=== PATIENT | female | born 1935 | race Caucasian/White ===

== ENCOUNTER 2019-08-27 19:31 | Emergency (ER) | payer MEDICARE, BC ==
[2019-08-27] MEDS ORDERED: BACIGUENT PACKET ONE (20:12)
--- NOTE | 2019-08-27 20:17 | ERPHSYRPT ---
- History of Present Illness Time Seen by Provider: 08/27/19 19:45 Source: patient Exam Limitations: no limitations Patient Subjective Stated Complaint: pt states, "I was taking some trash outside and fell out the front door". Triage Nursing Assessment: pt alert and oriented x3, cooperative. Pt has laceration to lt elbow area 5.4 cm L x 1.7 cm W x 0.1 cm D, small amt of bleeding. Pt has scratch to rt forearm area with small open area 0.8 cm L x 0.2 cm W x 0.1 cm D, all these due from a fall out the front door. Pt states, "I have poor balance and have been falling alot lately". Physician History: S/P Fall, Pt has laceration to lt elbow area 5.4 cm L x 1.7 cm W x 0.1 cm D, small amt of bleeding. Pt has scratch to rt forearm area with small open area 0.8 cm L x 0.2 cm W x 0.1 cm D, all these due from a fall out the front door. Pt states, "I have poor balance and have been falling alot lately". Occurred: just prior to arrival Reason for Fall: lost balance Injuries/Pain Location: upper extremity ( described above) Loss of Consciousness: no loss of consciousness Quality: burning Severity of Pain-Max: moderate Severity of Pain-Current: moderate Modifying Factors: Improves With: movement Associated Symptoms (Fall): extremity injury, No abdominal pain, No back pain, No confusion, No chest pain, No dizziness, No headache, No lightheadedness, No muscle spasms, No nausea, No neck pain, No ringing in ears, No seizures, No shortness of breath, No slurred speech, No trouble walking, No vomiting Allergies/Adverse Reactions: pregabalin [From Lyrica] Allergy (Severe, Verified 08/27/19 19:59) Swelling of Tongue and Lips Home Medications: Furosemide [Lasix] 10 mg PO DAILY PRN PRN 08/27/19 [History] Insulin Regular, Human [Humulin R] 12 units SQ TID 08/27/19 [History] Levothyroxine Sodium 88 Mcg [Synthroid 88 Mcg] 88 mcg PO DAILY 08/27/19 [ History] Metoprolol Tartrate 50 mg [Lopressor 50 MG] 50 mg PO BID 08/27/19 [History ] NPH, Human Insulin Isophane [Novolin N] 12 units SQ HS 08/27/19 [History] Naproxen Sodium 220 mg [Aleve 220 MG] 440 mg PO QID 08/27/19 [History] Hx Tetanus, Diphtheria Vaccination/Date Given: Yes Hx Influenza Vaccination/Date Given: Yes Hx Pneumococcal Vaccination/Date Given: Yes Immunizations Up to Date: Yes - Review of Systems Constitutional: No Fever, No Chills Eyes: No Symptoms Ears, Nose, & Throat: No Symptoms, Other (pain on the right side of the neck.) Respiratory: No Cough, No Dyspnea Cardiac: No Chest Pain, No Edema, No Syncope Abdominal/Gastrointestinal: No Abdominal Pain, No Nausea, No Vomiting, No Diarrhea Genitourinary Symptoms: No Dysuria Musculoskeletal: Other (Pt has laceration to lt elbow area 5.4 cm L x 1.7 cm W x 0.1 cm D, small amt of bleeding. Pt has scratch to rt forearm area with small open area 0.8 cm L x 0.2 cm W x 0.1 cm), No Back Pain, No Neck Pain Skin: Other (Pt has laceration to lt elbow area 5.4 cm L x 1.7 cm W x 0.1 cm D, small amt of bleeding. Pt has scratch to rt forearm area with small open area 0.8 cm L x 0.2 cm W x 0.1 cm), No Rash Neurological: No Dizziness, No Focal Weakness, No Sensory Changes Psychological: No Symptoms Endocrine: No Symptoms All Other Systems: Reviewed and Negative - Past Medical History Pertinent Past Medical History: Yes Neurological History: No Pertinent History ENT History: Cataracts Cardiac History: Angina, Congestive Heart Failure, High Cholesterol, Hypertension Respiratory History: Bronchitis Endocrine Medical History: Diabetes Type II, Hypothyroidism Musculoskeletal History: Arthritis GI Medical History: Other History: No Pertinent History Psycho-Social History: No Pertinent History Female Reproductive Disorders: No Pertinent History - Past Surgical History Past Surgical History: Yes Neuro Surgical History: No Pertinent History Cardiac: No Pertinent History Respiratory: No Pertinent History Gastrointestinal: Appendectomy, Cholecystectomy Musculoskeletal: No Pertinent History Female Surgical History: Hysterectomy - Social History Smoking Status: Never smoker Exposure to second hand smoke: No Drug Use: none Patient Lives Alone: Yes - Female History Hx Now: No - Nursing Vital Signs Nursing Vital Signs: Initial Vital Signs Temperature 98.3 F 08/27/19 19:43 Pulse Rate 68 08/27/19 19:43 Respiratory Rate 17 08/27/19 19:43 Blood Pressure 159/77 08/27/19 19:43 O2 Sat by Pulse Oximetry 99 08/27/19 19:43 Pain Scale Pain Intensity 3 - [place] Coma Score Best Eye Response ([place]): (4) open spontaneously Best Verbal Response ([place]): (5) oriented Best Motor Response ([place]): (6) obeys commands [place] Total: 15 - Physical Exam General Appearance: no apparent distress, alert Head Injury: no evidence of injury Eye Exam: PERRL/EOMI ENT Exam: airway nml Neck Exam: supple, trachea midline, full range of motion, normal alignment, normal inspection, muscle spasm, stiff neck, No focal neuro deficit, No limited range of motion, No paraspinous muscle tender, No pain on movement of neck, No tenderness, No tender lateral, No mid-line tenderness, No meningismus, No Brudzinski, No subcutaneous emphysema, No thyromegaly Respiratory/Chest Exam: normal breath sounds, No chest tenderness, No respiratory distress Cardiovascular Exam: normal heart sounds, regular rate/rhythm Gastrointestinal Exam: soft, No tenderness, No distention, No guarding, No ecchymosis Back Exam: normal inspection, No vertebral tenderness Extremity Exam: normal inspection, normal range of motion, pelvis stable, other (Pt has laceration to lt elbow area 5.4 cm L x 1.7 cm W x 0.1 cm D, small amt of bleeding. Pt has scratch to rt forearm area with small open area 0.8 cm L x 0.2 cm W x 0.1 cm), No deformities Neurologic Exam: alert, oriented x 3, cooperative, sensation nml, No motor deficits Skin Exam: normal color, warm, dry SpO2 Interpretation: normal SpO2: 99 O2 Delivery: Room Air - Course Nursing assessment & vital signs reviewed: Yes - Progress Progress: unchanged Progress Note: 08/27/19 20:16 the skin tear or does not need any suturing. we will put a dressing on it. There is no bony point tenderness. No x-rays required. No loss of consciousness. CHASSIS MECHANIC exam normal. The CT scan not needed. 08/27/19 20:17 patient is up to date on her tetanus shot. Patient refuses the pain medications. No medication needed Counseled pt/family regarding: diagnosis, need for follow-up - Departure Departure Disposition: Home Clinical Impression: Skin tear Contusion Qualifiers: Encounter type: initial encounter Contusion area: elbow Laterality: left Qualified Code(s): S50.02XA - Contusion of left elbow, initial encounter Cervical sprain Qualifiers: Encounter type: initial encounter Qualified Code(s): S13.9XXA - Sprain of joints and ligaments of unspecified parts of neck, initial encounter Condition: Stable Critical Care Time: No Referrals: PAGE NATH NP [Primary Care Provider] -
[2019-08-27] MEDS ORDERED: BACIGUENT PACKET TP ONE (20:19)
[2019-08-27 21:36] VITALS: BP 122/71; PULSE 86; O2SAT 99
== END 2019-08-27 20:35 | disposition home or self-care (01) ==
LOC: ED 19:31
DX: S51.012A Laceration without foreign body of left elbow, initial encounter (principal); W17.89XA Other fall from one level to another, initial encounter; S50.02XA Contusion of left elbow, initial encounter; Z79.899 Other long term (current) drug therapy; I50.9 Heart failure, unspecified; I10 Essential (primary) hypertension; E78.00 Pure hypercholesterolemia, unspecified; E11.9 Type 2 diabetes mellitus without complications; E03.9 Hypothyroidism, unspecified; M19.90 Unspecified osteoarthritis, unspecified site; S13.0XXA Traumatic rupture of cervical intervertebral disc, initial encounter
CPT/HCPCS: 99283; A9270-GY

== ENCOUNTER 2021-08-12 11:13 | Emergency (ER) | payer BC, MEDICARE ==
--- NOTE | 2021-08-12 11:16 | ERPHSYRPT ---
- History of Present Illness Time Seen by Provider: 08/12/21 11:15 Source: patient Exam Limitations: no limitations Physician History: This is an 85-year-old white female who does not have a local primary care provider per her report. Patient moved here 2-1/2 months ago and had right hip pain and low back pain since then. Recently, in the last few days, patient has noticed frequency of urination and burning with urination. She is concerned she has a urinary tract infection. Patient is a diabetic patient, has hypothyroidism, hypertension, elevated cholesterol, and congestive heart failure. Patient denies chest pain. She denies shortness of breath. Patient d enies fever. She denies nausea vomiting and diarrhea. Patient chronically walks with a cane. Timing/Duration: day(s) (Last few days worsening urinary frequency and dysuria), worse Activites at Onset: none Quality: burning Onset Location: suprapubic Severity of Pain-Max: mild Severity of Pain-Current: mild Prior abdominal problems: none Sexual intercourse history: non-contributory Modifying Factors: Improves With: nothing Associated Symptoms: dysuria, urinary frequency Allergies/Adverse Reactions: pregabalin [From Lyrica] Allergy (Severe, Verified 08/12/21 11:31) Swelling of Tongue and Lips Home Medications: Furosemide [Lasix] 10 mg PO DAILY PRN PRN 08/27/19 [History] Insulin Regular, Human [Humulin R] 12 units SQ TID 08/27/19 [History] Levothyroxine Sodium 88 Mcg [Synthroid 88 Mcg] 88 mcg PO DAILY 08/27/19 [History] Metoprolol Tartrate 50 mg [Lopressor 50 MG] 50 mg PO BID 08/27/19 [History] NPH, Human Insulin Isophane [Novolin N] 12 units SQ HS 08/27/19 [History] Hx Tetanus, Diphtheria Vaccination/Date Given: Yes Hx Influenza Vaccination/Date Given: Yes Hx Pneumococcal Vaccination/Date Given: Yes Travel Risk - International Travel Have you traveled outside of the country in past 3 weeks: No - Coronavirus Screening Are you exhibiting any of the following symptoms?: No Close contact with a COVID-19 positive Pt in past 14-21 Days: No - Review of Systems Constitutional: No Symptoms Eyes: No Symptoms Ears, Nose, & Throat: No Symptoms Respiratory: No Symptoms Cardiac: No Symptoms Abdominal/Gastrointestinal: No Symptoms Genitourinary Symptoms: Dysuria, Frequency Musculoskeletal: No Symptoms Skin: No Symptoms Neurological: No Symptoms Psychological: No Symptoms Endocrine: No Symptoms Hematologic/Lymphatic: No Symptoms Immunological/Allergic: No Symptoms All Other Systems: Reviewed and Negative - Past Medical History Pertinent Past Medical History: Yes Neurological History: No Pertinent History ENT History: Cataracts Cardiac History: Angina, Congestive Heart Failure, High Cholesterol, Hypertension Respiratory History: Bronchitis Endocrine Medical History: Diabetes Type II, Hypothyroidism Musculoskeletal History: Arthritis GI Medical History: Other History: No Pertinent History Psycho-Social History: No Pertinent History Female Reproductive Disorders: No Pertinent History - Past Surgical History Past Surgical History: Yes Neuro Surgical History: No Pertinent History Cardiac: No Pertinent History Respiratory: No Pertinent History Gastrointestinal: Appendectomy, Cholecystectomy Musculoskeletal: No Pertinent History Female Surgical History: Hysterectomy - Social History Smoking Status: Never smoker Exposure to second hand smoke: No Drug Use: none Patient Lives Alone: Yes - Nursing Vital Signs Nursing Vital Signs: Initial Vital Signs Temperature 96.9 F 08/12/21 11:20 Pulse Rate 62 08/12/21 11:20 Respiratory Rate 16 08/12/21 11:20 Blood Pressure 150/63 08/12/21 11:20 O2 Sat by Pulse Oximetry 95 08/12/21 11:20 Pain Scale Pain Intensity 8 - Physical Exam General Appearance: no apparent distress, alert, anxiety Eye Exam: PERRL/EOMI Ears, Nose, Throat Exam: normal ENT inspection, moist mucous membranes Neck Exam: normal inspection, non-tender, supple, full range of motion Respiratory Exam: normal breath sounds, lungs clear, airway intact, No chest tenderness, No respiratory distress Cardiovascular Exam: regular rate/rhythm, normal heart sounds, normal peripheral pulses Gastrointestinal/Abdomen Exam: soft, normal bowel sounds, organomegaly, No tenderness Rectal Exam: not done Back Exam: normal inspection, normal range of motion, No CVA tenderness, No vertebral tenderness Extremity Exam: normal inspection, normal range of motion, pelvis stable Neurologic Exam: alert, oriented x 3, cooperative, 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, normal mood/affect, nml cerebellar function, sensation nml Skin Exam: normal color, warm, dry Lymphatic Exam: No adenopathy O2 Delivery: Room Air - Course Nursing assessment & vital signs reviewed: Yes Ordered Tests: Active Orders 24 hr Category Date Time Status CULTURE,URINE Stat Lab 08/12/21 12:07 Received UA W/RFX UR CULTURE Stat Lab 08/12/21 12:07 Completed Medication Summary Discontinued Medications Generic Name Dose Route Start Last Admin Trade Name Nathan PRN Reason Stop Dose Admin Ceftriaxone Sodium 1,000 mg 08/12/21 12:48 08/12/21 13:15 Ceftriaxone Sodium 1000 Mg Inj Vial IM 08/12/21 12:49 1,000 mg STAT ONE Administration Ceftriaxone Sodium Confirm 08/12/21 13:11 Ceftriaxone Sodium 1000 Mg Inj Vial Administered 08/12/21 13:12 Dose 1,000 mg .ROUTE .STK-MED ONE Levofloxacin 500 mg 08/12/21 12:48 08/12/21 13:15 Levofloxacin 500 Mg Tablet PO 08/12/21 12:49 500 mg STAT ONE Administration Levofloxacin Confirm 08/12/21 13:11 Levofloxacin 500 Mg Tablet Administered 08/12/21 13:12 Dose 500 mg .ROUTE .STK-MED ONE Lidocaine HCl Confirm 08/12/21 13:11 Lidocaine Hcl 1% 20 Ml Mdv 20 Ml Ml Administered 08/12/21 13:12 Dose 1 ml .ROUTE .STK-MED ONE Lab/Rad Data: Laboratory Results 08/12/21 Range/Units 12:07 Urine Color YELLOW (YELLOW) Urine Appearance TURBID (CLEAR) Urine pH 5.0 (5-6) Ur Specific [place] 1.015 (1.005-1.025) Urine Protein 100 (Negative) Urine Ketones NEGATIVE (NEGATIVE) Urine Blood SMALL (0-5) Barry/ul Urine Nitrite NEGATIVE (NEGATIVE) Urine Bilirubin NEGATIVE (NEGATIVE) Urine Urobilinogen NEGATIVE (0-1) mg/dL Ur Leukocyte Esterase MODERATE (NEGATIVE) Urine WBC (Auto) >100 (0-5) /HPF Urine Bacteria (Auto) MODERATE (NEGATIVE) /HPF Urine Culture Reflexed YES (NO) Urine Glucose 150 (NEGATIVE) mg/dL - Progress Progress: unchanged Air Movement: good Blood Culture(s) Obtained: No Antibiotics given: Yes Counseled pt/family regarding: lab results, diagnosis, need for follow-up - Departure Departure Disposition: Home Clinical Impression: Chronic right hip pain, UTI (urinary tract infection) Condition: Stable Critical Care Time: No Referrals: PAGE NATH NP [NON-STAFF PHY W/O PRIVILEGES] [phone] Additional Instructions: Follow-up tomorrow morning, 08/13/2021, at the [facility] orthopedic clinic between 8 and 9 AM. It is a walk-in clinic and you do not need to have appointm ent. Take your antibiotics as prescribed and drink plenty of fluids. Take your other medication as prescribed. Prescriptions: Levofloxacin [Levaquin 500 MG Tablet] 500 mg PO DAILY #7 tablet Phenazopyridine HCl 200 mg [Pyridium 200 mg] 200 mg PO TID #6 tablet
[2021-08-12 11:31] VITALS: BP 150/63; PULSE 62; O2SAT 95
[2021-08-12 12:33] LABS: Appearance TURBID (CLEAR); Bacteria MODERATE /HPF (NEGATIVE); Bilirubin NEGATIVE (NEGATIVE); Blood SMALL Ery/ul (0-5); Glucose 150 mg/dL (NEGATIVE); Ketones NEGATIVE (NEGATIVE); Leukocyte Esterase MODERATE (NEGATIVE); Nitrite NEGATIVE (NEGATIVE); Protein,Urine Dip 100 (Negative); Specific Gravity 1.015 (1.005-1.025); Urobilinogen NEGATIVE mg/dL (0-1); WBC >100 /HPF (0-5)
[2021-08-12] MEDS ORDERED: Levofloxacin 500 MG Tablet PO ONE (12:48)
[2021-08-12] MEDS ORDERED: Rocephin 1000 MG INJ IM ONE (12:48)
[2021-08-12] MEDS ORDERED: XYLOCAINE 1% HCL 20 ML MDV ONE (13:11)
[2021-08-12] MEDS ORDERED: Levofloxacin 500 MG Tablet ONE (13:11)
[2021-08-12] MEDS ORDERED: Rocephin 1000 MG INJ ONE (13:11)
== END 2021-08-12 13:34 | disposition home or self-care (01) ==
LOC: ED 11:13
DX: N39.0 Urinary tract infection, site not specified (principal); M25.551 Pain in right hip; R35.0 Frequency of micturition; R30.0 Dysuria; E78.5 Hyperlipidemia, unspecified; I11.0 Hypertensive heart disease with heart failure; I50.9 Heart failure, unspecified; E11.8 Type 2 diabetes mellitus with unspecified complications; Z79.4 Long term (current) use of insulin
CPT/HCPCS: 81001; 87077; 87086; 87186; 96372; 99284; J0696; A9270-GY